=== PATIENT | female | born 1935 | race Caucasian/White ===

== ENCOUNTER 2018-02-26 12:14 | Day surgery (SDC) | payer OTHER, SELFPAY ==
[2018-02-26 12:49] VITALS: BP 146/77; PULSE 85; RESP 16; TEMP 36.8; O2SAT 99; BMI 23.6
[2018-02-26] MEDS: SODIUM CHLORIDE 0.9% 1,000 ML 100 ML IV (12:57)
--- NOTE | 2018-02-26 13:51 | PM.HP.1 ---
History of Present Illness Date Patient Seen: 02/26/18 Time Patient Seen: 13:51 Chief complaint: colonoscopy [id number] Narrative: Wonderful 82-year-old lady who is well known to me from prior visits about 5 years ago. At that time she had a screening colonoscopy that will she thinks may have revealed a polyp but I do not have any report of that today. As it was time for another study, she did a Cologard study. Unfortunately, the study was positive. She is here today to have a colonoscopy to further evaluate that result. Joanna admits that she struggles with chronic constipation and she has for most of her life. She is frustrated because she feels like the positive stool specimen was after a long bout of constipation and that it isn't truly positive. She is more than willing to have this procedure today to evaluate the results. She denies any new problems with her bowels. She denies any unexplained weight loss. She denies any night sweats or constitutional symptoms. She has not noted any bright red blood per rectum. Patient History Family & Social History Family History: Reviewed 02/26/18 by Rashida Leung MD Social History: household members family Meds Home Medications Medication Instructions Recorded Confirmed Type aspirin [Aspirin Low Dose] 81 mg PO DAILY 02/26/18 02/26/18 History losartan 25 mg PO DAILY 02/26/18 02/26/18 History Allergies Allergy/AdvReac Type Severity Reaction Status Date / Time ampicillin Allergy Verified 02/26/18 12:58 Review of Systems Review of Systems All systems reviewed & are unremarkable except as noted in HPI and below Exam Vital Signs (past 8 hours): - 02/26/18 12:49 Temperature 98.3 F Pulse Rate 85 Respiratory Rate 16 Blood Pressure 146/77 H Pulse Oximetry 99 Oxygen Delivery Method Room Air Narrative Exam Narrative: Remarkably healthy pleasant 82-year-old lady in no distress HEENT: Normocephalic and atraumatic, pupils equal round reactive to light accommodation with anicteric sclera Lungs: Clear to auscultation bilaterally Heart: Regular rate and rhythm without murmur rub or gallop Abdomen: Soft, nontender, active bowel sounds Extremities: Warm well perfused Assessment & Plan Plan: Assessment/Plan Narrative: Wonderful 82-year-old lady with a recent positive Cologard study. We have discussed the risks and benefits of colonoscopy the patient expressed a desire to proceed.
[2018-02-26] MEDS: MIDAZOLAM 5 MG/5 ML VIAL IV (14:29)
[2018-02-26] MEDS: fentaNYL 250 MCG/5 ML INJ IV (14:29)
--- NOTE | 2018-02-26 14:32 | PM.OP.1 ---
Operative Date/Time/Diagnoses Date of procedure: 02/26/18 Time of procedure: 14:32 Pre-op diagnosis: Guaiac-positive stool Post-op diagnosis: same Procedure & Clinicians Procedure: Colonoscopy to the cecum Same procedure as scheduled: Yes Indications: Heme-positive stool Surgeon: Rashida Leung Anesthesia Type: Sedation (Versed 6 mg; fentanyl 150 mcg) Operative Notes Findings: 1. Excellent prep 2. No polyps or mass lesions 3. Very elongated, tortuous, and atonic colon. 4. Diverticulosis beginning at 60 cm from the anal verge and extending to the rectosigmoid junction 5. Decreased anal sphincter tone 6. A single excoriated internal hemorrhoid with stigmata of recent bleeding. This is the likely source of her recent heme-positive study Closure Type: not applicable Specimen(s): none sent Procedure in detail: After obtaining informed consent, the patient was brought to the GI suite and placed in the left lateral decubitus position on the examination table. After placement of appropriate monitors, the patient was given incremental doses of Versed and Fentanyl until an appropriate level of sedation was achieved. A time out was held per SCOAP protocol. A digital rectal examination was performed and did not reveal any masses or obstructing lesions. The colonoscope was gently passed into the patient's anus and the entire colon navigated to the level of the cecum with significant difficulty due to decreased muscular tone within the colon as well as elongation. Multiple changes of position and external pressure were required to reach the cecum. Once in the cecum, the scope was withdrawn being sure to go before and beyond all mucosal folds and prominences and get an excellent examination. The findings are noted above. At the level of the rectal vault, the scope was retroflexed and the internal anal canal was examined. The scope was straightened and air aspirated from the colon. The instrument was removed from the patient's body and the procedure was concluded. The patient was allowed to awaken from sedation without difficulty and taken to the post-anesthesia care unit in good condition. Total sedation time 28 min Total withdrawal time 8 min 14 sec Complications: none Condition: stable Disposition: PACU Plan for aftercare: 1. Discharge to home 2. Next colonoscopy in 5-10 years or as clinically indicated
[2018-02-26 14:34] VITALS: BP 85/47; PULSE 71; RESP 9; TEMP 36.4; O2SAT 93
--- NOTE | 2018-02-26 14:38 | SUR.PHASEI ---
1435: pt put into [place] for low BP (85/47). Pt asleep and unresponsive at this point. Sats 93-95% on 2L NC. HR 70's.
[2018-02-26 14:39] VITALS: BP 87/53; PULSE 71; RESP 11; O2SAT 97
[2018-02-26 14:44] VITALS: BP 104/59; PULSE 80; RESP 15; O2SAT 94
[2018-02-26 14:49] VITALS: BP 114/69; PULSE 80; RESP 13; O2SAT 95
[2018-02-26 15:02] VITALS: BP 117/66; PULSE 80; RESP 16; TEMP 36.2; O2SAT 96
== END 2018-02-26 15:15 | disposition home or self-care (01) ==
PROVIDERS: PCP Physician Assistant; Visit Provider Surgery
PROC: 0DJD8ZZ Inspection of Lower Intestinal Tract, Via Natural or Artificial Opening Endoscopic (ICD-10-PCS; CPT 45378; principal; 2018-02-26 13:45)
DX: R19.5 Other fecal abnormalities (principal); K57.30 Diverticulosis of large intestine without perforation or abscess without bleeding; K64.8 Other hemorrhoids
CPT/HCPCS: 45378; 99152; 99153; J2250; J3010